=== PATIENT | female | born 1970 | race Caucasian/White ===

== ENCOUNTER 2019-09-23 10:16 | Day surgery (SDC) | payer BC, SELFPAY ==
--- NOTE | 2019-09-22 17:56 | PCM.HP.OB ---
- Problem List (1) Heavy menstrual bleeding Status: Acute History Date of Admission: 09/23/19 History of this : This is a 49 year-old with menorrhagia with regular cycle. Medical History: Medical History (Last Updated 09/22/19 @ 17:58 by Renetta Balderas DO) History of anemia Z86.2 History of fracture Z87.81 History of kidney infection Z87.440 History of pneumonia Z87.01 IBS (irritable bowel syndrome) K58.9 Sleep apnea G47.30 Vertigo R42 Surgical History: Surgical History (Last Updated 09/22/19 @ 17:58 by Renetta Balderas DO) History of breast biopsy Z98.890 History of colonoscopy Z98.890 History of dilation and curettage Z98.890 History of tubal ligation Z98.51 Allergies Sulfa (Sulfonamide Antibiotics) Allergy (Verified 09/20/19 10:58) Anaphylaxis Home Medications: Home Medications Acetaminophen [Tylenol Extra Strength] 500 - 1,000 mg PO Q6H PRN PRN 09/20/19 Ferrous Sulfate 325 mg PO DAILY@0800 09/20/19 Ibuprofen [Motrin] 600 mg PO Q6H PRN PRN 09/20/19 Melatonin 5 mg PO QHS 09/20/19 Zolpidem Tartrate [Ambien Cr] 6.25 mg PO QHS PRN 09/20/19 Smoking Status: Former smoker History Past Pregnancies: Past Pregnancies Delivery Date Name GA/ Weeks Outcome Route Wt Sex Labor Length Anesthesia Delivery Location Provider FOB Review of Systems Constitutional: Denies: Fever Eyes: Denies: Blurred vision HEENT: Denies: Head Aches Cardiovascular: Denies: Chest Pain Respiratory: Denies: Cough, Shortness of breath at rest Gastrointestinal: Denies: Abdominal Pain Genitourinary: Denies: Dysuria Gynecological: Reports: Vaginal bleeding Psychiatric: Denies: Anxiety, Depression Hematologic/ Lymphatic: Denies: Easy Bruising, Easy Bleeding Physical Exam General: Alert, No apparent distress HEENT: Atraumatic Cardiovascular: Regular rate Lungs: Clear to auscultation Abdomen: Soft, Non Tender, Non-Distended Extremities:: No edema Neurological: Neuro grossly intact Assessment/Plan All Active Problems Heavy menstrual bleeding (Acute) This is a 49 year-old with HMB. - She desires an ablation after discussion of r/b/a. To proceed with hysteroscopy ablation
[2019-09-23] VITALS (7 sets, daily range): BP systolic 104–128; BP diastolic 65–80; PULSE 16–82; RESP 15–16; TEMP 36.5–36.7; O2SAT 99–100; BMI 21.4
[2019-09-23 10:47] LABS: Internal QC Validated? YES +Cl - CLEAR BKGD; Pregnancy, Urine Negative Negative
[2019-09-23 10:52] LABS: Hematocrit 41.1 % (37-47); Hemoglobin 13.3 g/dL (12.0-15.0); Mean Corp Hgb Conc 32.4 g/dL (32-36); Mean Corpuscular Hgb 31.7 pg (27.0-32.0); Mean Corpuscular Volume 98.1 fL (81-99); Mean Platelet Vol. 9.5 fl (6.2-12.0); Platelet Count 295 K/mm3 (150-450); RBC Distribution Width CV 14.6 % (11.6-14.6); RBC Distribution Width SD 52.7 fl (35.1-43.9); Red Blood Count 4.19 M/mm3 (4.2-5.4); White Blood Count 7.3 K/mm3 (4.4-11.0)
[2019-09-23] MEDS: Lactated Ringers 1,000 ML 100 ML IV (11:00)
--- NOTE | 2019-09-23 13:14 | DCINST_ITS ---
You will use the following diet at home:: No restrictions Your food should be the consistency of: Regular Discharge Activity: May not drive while taking narcotic pain medications., May Shower May resume sexual activity in: 1-2 weeks Weight Bearing Status: Full weight bearing Lifting Restrictions: None Call your doctor if you observe: Fever of 101 or Higher, Inability to urinate, Inability to have a bowel movement, Using more than one pad per hour, Shortness of breath, Dizziness, Chest pain, Increased palpitations (irregular heartbeat), Calf discomfort, Uncontrolled pain Allergies/Adverse Reactions: Allergies Sulfa (Sulfonamide Antibiotics) Allergy (Verified 09/23/19 10:47) Anaphylaxis Medications to take at Discharge Acetaminophen [Tylenol Extra Strength] 500 - 1,000 mg PO Q6H PRN PRN 09/20/19 Ferrous Sulfate 325 mg PO DAILY@0800 09/20/19 Ibuprofen [Motrin] 600 mg PO Q6H PRN PRN 09/20/19 Melatonin 5 mg PO QHS 09/20/19 Zolpidem Tartrate [Ambien Cr] 6.25 mg PO QHS PRN 09/20/19 Orders to be completed after discharge: Type & Screen Time Frame: 09/23/19, Facility: [facility], Location: Laboratory CBC-Complete Blood Cnt No Diff Time Frame: 09/23/19, Facility: [facility], Location: Laboratory Primary Care Physician: Mari Jones MD [Primary Care Provider] - Test Results: Test results from this visit will be discussed in further detail at your follow- up appointment, if applicable. Please Follow Up With: Renetta Balderas DO When: 1 week Proposed Discharge Date: 09/23/19
--- NOTE | 2019-09-23 13:15 | OP.PCM_ITS ---
Problem List (1) Heavy menstrual bleeding Status: Acute Report of Operation Date of Procedure: 09/23/19 Pre-Operative Diagnosis: HMB, benign endometrial biopsy Post-Operative Diagnosis: HMB Surgery/Procedure Performed:: Hysteroscopy, ablation Description of Surgical Findings:: Normal uterine cavity noted. Bilateral tubal ostia were visualized. No fibroids or polyps noted. Minimal descent of the cervix and uterus. Type of Anesthesia:: MAC Specimen's removed: None Drains: None Estimated Blood Loss (mL): < 10 cc Fluids Replaced: 800 cc Description of Procedure: The patient was prepped and draped in dorsal lithotomy position using yellowfin stirrups. Anesthesia was found to be adequate. A weighted speculum was placed in the vagina and the cervix was exposed. The anterior lip of the cervix was grasped with a single-tooth tenaculum. The cervix was progressively dilated to accommodate the hysteroscope. The uterus sounded to 8 cm. The cervical length was noted to be 4 cm. The hysteroscope was advanced into the uterus and the uterus was distended. There were no polyps or fibroids noted within the uterine cavity. The uterine cavity was normal-appearing. Bilateral tubal ostia were visualized. The hysteroscope was then removed. The Autumn ablation device was then set and introduced into the uterine cavity. The Autumn ablation was performed in usual fashion without complications. The Autumn device was remov ed from the uterus. All instruments were removed from the vagina. Bleeding was hemostatic. The patient was taken to the recovery room in stable condition. - Complications None - Admit VTE Documentation VTE Present on Admission: No
[2019-09-23] MEDS: HYDROcodone Bitartrate/Apap 5/325 Tablet PO (13:56)
== END 2019-09-23 17:32 | disposition home or self-care (01) ==
LOC: SDC 10:23 → AC 10:27
PROVIDERS: Family Provider Internal Medicine; PCP Internal Medicine; Referring Provider Obstetrics & Gynecology; Visit Provider Obstetrics & Gynecology
PROC: 0U5B8ZZ Destruction of Endometrium, Via Natural or Artificial Opening Endoscopic (ICD-10-PCS; CPT 58558; principal; 2019-09-23 11:45)
DX: N92.0 Excessive and frequent menstruation with regular cycle (principal); K58.9 Irritable bowel syndrome, unspecified; G47.30 Sleep apnea, unspecified; R42 Dizziness and giddiness; F41.9 Anxiety disorder, unspecified; Z79.1 Long term (current) use of non-steroidal anti-inflammatories (NSAID); Z79.899 Other long term (current) drug therapy; Z88.2 Allergy status to sulfonamides; Z86.2 Personal history of diseases of the blood and blood-forming organs and certain disorders involving the immune mechanism; Z87.440 Personal history of urinary (tract) infections; Z87.01 Personal history of pneumonia (recurrent); Z87.891 Personal history of nicotine dependence
CPT/HCPCS: 58563; 36415; 81025; 85027; 86850; 86900; 86901; J7120; J2405

== ENCOUNTER 2019-09-28 06:53 | Emergency (ER) | payer BC, SELFPAY ==
[2019-09-23 10:48] VITALS: BMI 21.4
[2019-09-28 06:54] VITALS: BP 153/90; PULSE 84; RESP 16; TEMP 36.1; O2SAT 96; BMI 22.1
--- NOTE | 2019-09-28 07:15 | ED.VIS.GEN ---
History of Present Illness Chief Complaint: General Illness Informant: Patient Narrative: Patient presents with nausea, upper airway congestion, sore throat rhinorrhea and right-sided headache for about 4 days. She has no fever, she has a cough. She had a couple episodes of vomiting and noticed some blood streaks this morning after vomiting. She is concerned because she had an ablation about 5 days ago and wants to make sure it is not a sequelae from her uterine ablation. She has abdominal pain on the right side although it is improved from surgery and she has stopped taking her Percocets. She has no shortness of breath the cough is nonproductive. Past Medical History - Allergies and Home Meds Allergies/Adverse Reactions: Allergies Sulfa (Sulfonamide Antibiotics) Allergy (Verified 09/23/19 10:47) Anaphylaxis Primary Care Physician: Mari Jones MD [Primary Care Provider] - Past Medical History: - - Heavy menstrual bleeding Surgical History: - - Uterine ablation as in HPI Smoking Status: Never smoker Review of Systems General: Denies: Fever Eyes: Denies: Visual changes - bilaterally ENT: Reports: Right ear pain, Rhinorrhea, Sore throat Cardiovascular: Denies: Chest pain, Palpitations Respiratory: Reports: Cough. Denies: Dyspnea, Sputum Gastrointestinal: Reports: Abdominal pain, Nausea, Vomiting. Denies: Diarrhea Genitourinary: Denies: Dysuria Musculoskeletal: Denies: Myalgias, Neck pain, Back pain Skin: Denies: Rash Neurological: Denies: Weakness Hematologic: Denies: Easy bruising Physical Exam Vital Signs/Narrative: Vital Signs Temp Pulse Resp BP Pulse Ox 09/28/19 06:54 97.0 F L 84 16 153/90 H 96 General: Well nourished, Well developed Head: Normocephalic, Atraumatic Eyes: Perrl ENT: Moist mucous membranes, - - There is upper airway congestion, rhinorrhea, there is some postnasal drip present. TMs are clear, she has right ear pain, she has slight erythema but no bulging. Cardiovascular: Regular rate, Regular rhythm Respiratory: No distress, CTA bilaterally Abdomen: Soft, - - She has slight pelvic and right pelvic tenderness, from her surgery. She has no guarding or rebound. Back: Nontender, Normal Inspection Extremities: Nontender, No edema Skin: Normal color Neurological: Alert, Normal Strength Diagnostic/Tx/Re-eval - Medical Decision Making Patient appears well, she likely has an upper respiratory infection which is likely viral. She does not meet criteria for antibiotic treatment. I will give her decongestants and antiemetics. Discharge stable condition ED Disposition - Plan for ED Patient: Disposition: Home or Assisted Living Diagnosis: Upper respiratory infection Instructions: URI, Viral, No Abx (Adult) Prescriptions: Guaifenesin/Dextromethorphan [Tussin Dm Liquid] 5 ml PO TID PRN #118 liquid PRN Reason: Cough Transmission Status: Pending to [facility] Ondansetron [Zofran Odt] 4 mg PO Q8H PRN PRN #12 tab PRN Reason: Nausea Transmission Status: Pending to [facility] Referrals: Mari Jones MD [Primary Care Provider] - 3-5 Days
== END 2019-09-28 07:43 | disposition home or self-care (01) ==
PROVIDERS: Emergency Provider Emergency Medicine; Family Provider Internal Medicine; PCP Internal Medicine
DX: J06.9 Acute upper respiratory infection, unspecified (principal); H92.01 Otalgia, right ear; R11.2 Nausea with vomiting, unspecified; R10.9 Unspecified abdominal pain; Z88.2 Allergy status to sulfonamides; Z79.899 Other long term (current) drug therapy
CPT/HCPCS: 99282

== ENCOUNTER 2021-09-28 18:03 | Observation (INO) | payer OTHER, SELFPAY ==
[2021-09-28 18:03] VITALS: BP 114/92; PULSE 130; RESP 18; TEMP 35.9; O2SAT 100; BMI 22.3
--- NOTE | 2021-09-28 19:27 | US_ITS ---
INDICATION: vaginal bleeding EXAMINATION: Ultrasound US Transvaginal Non-OB TECHNIQUE: Transvaginal (for optimal evaluation of the adnexa) pelvic ultrasound was performed. Grayscale, spectral waveform, and color flow Doppler evaluation of the adnexa. COMPARISON: None. FINDINGS: Reported LMP of 09/16/2021. Uterus measures 7.7 x 4.8 x 3.5 cm and is retroflexed in position. There is a 1.3 x 1.4 x 0.7 cm hypoechoic area within the posterior fundal region likely representing a myometrial fibroid. Ill-defined heterogeneous area of decreased echogenicity in the mid, left uterus region not well differentiated from the endometrium measures roughly 16 x 15 x 14 mm. Endometrial stripe measures up to 14 mm in this area. Submucosal fibroid or less likely endometrial mass lesion is considered. No color flow images of this area. Cervix is normal in appearance. Right ovary measures 2.9 x 3.0 x 2.4 cm. Left ovary measures 2.5 x 1.7 x 1.47 m. There is a roughly 2 cm anechoic cystic lesion right ovary representing dominant follicle or cyst. No suspicious solid component. No visible follicle seen in the left ovary. Mildly decreased color flow seen in the bilateral ovaries. No evidence of torsion. No adnexal mass lesion. No suspicious fluid in the cul-de-sac. US/Transvaginal Non- IMPRESSION: Area of potential focal endometrial stripe thickening and/or hypoechoic lesion extending into the endometrial stripe as could be seen with submucosal fibroid. No appreciable fluid in the endometrial cavity. Follow-up pelvic ultrasound following a menstrual cycle is recommended. Electronically Signed: Bebeto Rueda DO at 21:17 EST Tel , Service support ,
[2021-09-28 19:46] LABS: Absolute Lymphocyte Count 1.64 X10^3/uL (0.83-4.51); Basophil# 0.02 X10^3/uL; Basophil% 0.4 % (0-1); Eosinophil# 0.05 X10^3/uL; Hemoglobin 8.9 g/dL (12.0-15.0); Lymphocyte # 1.64 X10^3/ul (0.83-4.51); Lymphocyte % 32.7 % (19-41); Mean Corpuscular Hgb 29.3 pg (27.0-32.0); Mean Corpuscular Volume 88.8 fL (81-99); Mean Platelet Vol. 9.3 fl (6.2-12.0); Monocyte# 0.29 X10^3/uL; Monocyte% 5.8 % (0-10); NRBC Flagged by Analyzer 0 % (0-5); Neutrophil # 3.01 X10^3/uL (2.7-7.7); Neutrophil % 59.9 % (47-70); Platelet Count 277 K/mm3 (150-450); RBC Distribution Width CV 15.4 % (11.6-14.6); RBC Distribution Width SD 50.6 fl (35.1-43.9); Red Blood Count 3.04 M/mm3 (4.2-5.4)
[2021-09-28 19:58] VITALS: BP 87/56; PULSE 80; RESP 18; O2SAT 100
[2021-09-28 20:01] LABS: Anion Gap 6 (5-15); BUN 11 mg/dL (7-18); BUN/Creat Ratio 16.2 RATIO (10-20); Calcium,Total 8.5 mg/dL (8.5-10.1); Chloride 108 mmol/L (98-107); Creatinine, Serum 0.68 mg/dL (0.55-1.02); EST Glomerular Filtration Rate 96 mL/min (>60); Est Glom Filt Rate - Afr Amer 117 mL/min (>60); Estimated Creatinine Clearance 83.57 ml/min; Glucose 112 mg/dL (74-106); Potassium 3.7 mmol/L (3.5-5.1); Sodium Level 139 mmol/L (136-145)
[2021-09-28] MEDS: 0.9% Normal Saline 1,000 ML 999 ML IV ×2 (20:09→22:41)
[2021-09-28 20:11] VITALS: BP 98/73; PULSE 76; RESP 18; O2SAT 100
[2021-09-28 21:15] VITALS: BP 118/66; PULSE 86; RESP 12; O2SAT 97
[2021-09-28 21:39] LABS: Internal QC Validated? YES +Cl - CLEAR BKGD; Pregnancy, Serum, hCG Quali. NEGATIVE Negative
[2021-09-28] MEDS: Megestrol Acetate 400 MG/10 ML UDC 800 MG PO (23:17)
[2021-09-28 23:30] VITALS: BP 122/68; PULSE 84; RESP 16; O2SAT 100
--- NOTE | 2021-09-28 23:31 | ED.VIS.FEGU ---
HPI HPI - Female History of Present Illness Chief Complaint: Vag Bleeding Narrative Narrative: Patient is a 51-year-old female who states that she has been perimenopausal. She states that she has not had a menstrual cycle for 6 weeks and then began with vaginal bleeding on September 16. She states that she has been bleeding for the past 2 weeks but over the past few days has had increased bleeding and passage of clot. She states she is starting to feel lightheaded or dizzy as well and therefore comes in for evaluation. The patient denies any bleeding disorder or blood thinner use. [facility] Medical History History of anemia History of fracture History of kidney infection History of pneumonia IBS (irritable bowel syndrome) Sleep apnea Vertigo Home Medications ferrous sulfate 650 mg PO QODAY 09/20/19 [History Last Taken Unknown] melatonin 5 mg PO QHS 09/20/19 [History Last Taken Unknown] Allergy/AdvReac Type Severity Reaction Status Date / Time Sulfa (Sulfonamide Allergy Anaphylaxis Verified 09/28/21 18:06 Antibiotics) Surgical History History of breast biopsy History of colonoscopy History of dilation and curettage History of tubal ligation Social History Smoking Status: Former smoker ROS ROS ED Constitutional Constitutional ED: Denies chills or fever(s) ENT ENT ED: Denies sore throat Cardiovascular Cardiovascular: Denies chest pain Respiratory/Chest Respiratory/Chest: Denies cough or dyspnea Gastrointestinal Gastrointestinal: Denies abdominal pain, diarrhea, nausea or vomiting Genitourinary Genitourinary ED: Reports other Details: Positive vaginal bleeding ; Denies dysuria Musculoskeletal Musculoskeletal: Denies myalgias Integumentary Denies rash Neurologic Neurologic: Denies headache(s) Hematologic/Lymphatic Hematologic/Lymphatic: Denies easy bleeding or easy bruising EXAM Physical Exam Const Vital Signs: 09/28/21 18:03 09/28/21 19:58 09/28/21 20:11 Temperature 96.7 F L Temperature Source Temporal Pulse Rate 130 H 80 76 Respiratory Rate 18 18 18 Blood Pressure 114/92 H 87/56 L 98/73 Blood Pressure Mean 99 66 81 Pulse Ox 100 100 100 Oxygen Delivery Method Room Air Room Air Room Air 09/28/21 21:15 09/28/21 23:30 Temperature Temperature Source Pulse Rate 86 84 Respiratory Rate 12 16 Blood Pressure 118/66 122/68 H Blood Pressure Mean 83 86 Pulse Ox 97 100 Oxygen Delivery Method Room Air Positive well nourished and well developed General Appearance ED: well developed HEENT Reports moist mucous membranes Eyes PERRL and EOMs intact bilaterally General Eye ED: Yes pale conjunctiva Neck supple Resp normal respiratory effort and clear to auscultation bilaterally Cardio regular rhythm Rate: tachycardic GI normal to inspection, nondistended, normoactive bowel sounds, soft to palpation, non-tender, non-distended and no masses Auscultation: normoactive bowel sounds Palpation: soft Narrative: External genitalia is normal. On speculum exam the vaginal vault is full of dark red blood as well as a large amount of clot. After evacuation there is brisk bleeding which begins to fill the vaginal vault once again Extremity normal to inspection Neuro oriented x3, CN's II-XII intact bilaterally and no sensory deficits noted Sensorium / Orientation: alert Psych mental status grossly normal Skin no rashes or lesions noted MDM MDM MDM Narrative Medical decision making narrative: Patient presented to the ER tachycardic but otherwise normal tensive. She denies any bleeding disorder or blood thinner use but did report prolonged vaginal bleeding that worsened over the last few days. With this history and report of being lightheaded there is concerned that she may need a blood transfusion so basic blood work was ordered. The patient's hemoglobin was above transfusion value at 8.9 however she was orthostatic positive and therefore given fluids. Patient continued to have bleeding so I discussed the case with [employer] and they recommend progesterone to try to help reduce bleeding. This was given the patient still had persistent vaginal bleeding and symptoms of lightheadedness with sitting or standing. Therefore repeat hemoglobin was obtained and is now down at 7. Therefore patient will be given 2 units of blood and admitted to the hospital for further evaluation. Lab Data Attestation: I reviewed the patient's lab results. Labs: Laboratory Results - last 24 hr 09/28/21 09/28/21 09/28/21 19:35 19:35 20:07 WBC 5.0 RBC 3.04 L Hgb 8.9 L Hct 27.0 L MCV 88.8 MCH 29.3 MCHC 33.0 RDW Std Deviation 50.6 H RDW Coeff of Gunner 15.4 H Plt Count 277 MPV 9.3 Immature Gran % (Auto) 0.200 Neut % (Auto) 59.9 Lymph % (Auto) 32.7 [place] % (Auto) 5.8 Eos % (Auto) 1.0 Baso % (Auto) 0.4 Absolute Neuts (auto) 3.0 Absolute Lymphs (auto) 1.64 Nucleated RBC % 0 Sodium 139 Potassium 3.7 Chloride 108 H Carbon Dioxide 25.0 Anion Gap 6 BUN 11 Creatinine 0.68 Estim Creat Clear Calc 83.57 Est GFR (MDRD) Af Amer 117 Est GFR (MDRD) Non-Af 96 BUN/Creatinine Ratio 16.2 Glucose 112 H Calcium 8.5 Serum , Qual Blood Type O POSITIVE Antibody Screen NEGATIVE 09/28/21 09/28/21 21:13 23:50 WBC RBC Hgb 7.0 L Hct 21.7 L MCV MCH MCHC RDW Std Deviation RDW Coeff of Gunner Plt Count MPV Immature Gran % (Auto) Neut % (Auto) Lymph % (Auto) [place] % (Auto) Eos % (Auto) Baso % (Auto) Absolute Neuts (auto) Absolute Lymphs (auto) Nucleated RBC % Sodium Potassium Chloride Carbon Dioxide Anion Gap BUN Creatinine Estim Creat Clear Calc Est GFR (MDRD) Af Amer Est GFR (MDRD) Non-Af BUN/Creatinine Ratio Glucose Calcium Serum , Qual NEGATIVE Blood Type Antibody Screen Radiography Diagnostic Testing: Clinical Impression(s) from Imaging Studies Transvaginal US 09/28/21 19:27 IMPRESSION: Area of potential focal endometrial stripe thickening and/or hypoechoic lesion extending into the endometrial stripe as could be seen with submucosal fibroid. No appreciable fluid in the endometrial cavity. Follow-up pelvic ultrasound following a menstrual cycle is recommended. Electronically Signed: Bebeto Rueda DO at 21:17 EST Tel , Service support , Discharge Plan Triage Chief Complaint: Vag Bleeding ED Provider: Neel Sher Dx/Rx/DC Orders Clinical Impression: Acute blood loss anemia, DUB (dysfunctional uterine bleeding) Prescriptions: No Action ferrous sulfate 325 MG tablet 650 mg PO QODAY RF: 0 melatonin 5 MG capsule 5 mg PO QHS RF: 0 Primary Care Provider: Mari Jones Referrals: Mari Jones MD [Primary Care Provider] - Disposition Disposition: Acute Care Hospital [facility]
[2021-09-28] MEDS: Ondansetron 4 MG/2 ML Vial IV (23:53)
[2021-09-28] MEDS: 0.9% Normal Saline 1,000 ML 200 ML IV (23:56)
[2021-09-29] VITALS (19 sets, daily range): BP systolic 81–102; BP diastolic 44–71; PULSE 65–86; RESP 16–18; TEMP 36.4–37.4; O2SAT 96–100; BMI 21.6
[2021-09-29 00:02] LABS: Hematocrit 21.7 % (37-47)
--- NOTE | 2021-09-29 02:07 | PCS.PANDOC ---
PANDEMIC DOCUMENTATION INITIATED: Date: 06/18/2021 Time: 1900 Emergency documentation initiated 09/29/21 @ 0200
[2021-09-29] MEDS: Estrogens,Conj. 25 MG Vial IV ×3 (06:09→14:44)
[2021-09-29] MEDS: 0.9% Normal Saline 1,000 ML 200 ML IV ×3 (06:11→14:48)
[2021-09-29 10:04] LABS: Hematocrit 23.7 % (37-47); Hemoglobin 7.9 g/dL (12.0-15.0); Mean Corp Hgb Conc 33.3 g/dL (32-36); Mean Corpuscular Hgb 29.5 pg (27.0-32.0); Mean Corpuscular Volume 88.4 fL (81-99); Mean Platelet Vol. 9.8 fl (6.2-12.0); Platelet Count 198 K/mm3 (150-450); RBC Distribution Width CV 15.8 % (11.6-14.6); RBC Distribution Width SD 50.9 fl (35.1-43.9); Red Blood Count 2.68 M/mm3 (4.2-5.4); White Blood Count 4.9 K/mm3 (4.4-11.0)
[2021-09-29 10:17] LABS: International Normalized Ratio 1.2; Prothrombin Time (Protime)PT. 14.5 SECONDS (11.7-14.9)
[2021-09-29] MEDS: 0.9% Saline Lock 10 ML Syringe IV ×2 (10:18→14:39)
[2021-09-29 10:22] LABS: AST(SGOT) 13 U/L (15-37); Alanine Aminotransfer ALT/SGPT 13 U/L (13-56); Albumin, Serum 2.3 g/dL (3.2-5.0); Alkaline Phosphatase 40 U/L (45-117); Anion Gap 4 (5-15); BUN 7 mg/dL (7-18); BUN/Creat Ratio 11.9 RATIO (10-20); Calcium,Total 7.5 mg/dL (8.5-10.1); Chloride 117 mmol/L (98-107); Creatinine, Serum 0.59 mg/dL (0.55-1.02); EST Glomerular Filtration Rate 115 mL/min (>60); Est Glom Filt Rate - Afr Amer 139 mL/min (>60); Estimated Creatinine Clearance 96.32 ml/min; Globulin 2.3 g/dL (2.2-4.2); Glucose 108 mg/dL (74-106); Potassium 4.1 mmol/L (3.5-5.1); Protein, Total 4.6 g/dL (6.4-8.2); Sodium Level 144 mmol/L (136-145)
[2021-09-29 11:15] LABS: Thyroid Stim Hormone (TSH) 1.19 uIU/mL (0.358-3.74)
--- NOTE | 2021-09-29 11:22 | PCM.HP.STD ---
HPI - General General Date of Admission: 09/29/21 HPI Narrative ROC SEN, is a 51 F who presents with vaginal bleeding for 2 weeks. The bleeding became heavy with clots Friday night. Prior to this menses were monthly and heavy (but less so than prior to 2019 ablation). She feels tired and weak. Her bleeding has slowed down since last night. [facility] Medical History (Updated 09/29/21 @ 11:[address] Mike Vazquez MD) Abnormal uterine bleeding (AUB) History of anemia History of fracture History of kidney infection History of pneumonia IBS (irritable bowel syndrome) Sleep apnea Vertigo Home Medications ferrous sulfate 650 mg PO QODAY 09/20/19 [History Last Taken Unknown] melatonin 10 mg PO QHS 09/20/19 [History Last Taken Unknown] Allergy/AdvReac Type Severity Reaction Status Date / Time Sulfa (Sulfonamide Allergy Anaphylaxis Verified 09/28/21 18:06 Antibiotics) Surgical History (Updated 09/29/21 @ 11:[address] Mike Vazquez MD) History of breast biopsy History of colonoscopy History of dilation and curettage History of tubal ligation S/P endometrial ablation Social History Smoking Status: Former smoker ROS Constitutional Constitutional: Reports weakness; Denies anorexia, change in weight, chills, fatigue, fever(s), malaise, night sweats, weight gain or weight loss Cardiovascular Cardiovascular: Denies chest pain, claudication, edema, orthopnea, palpitations, paroxysmal nocturnal dyspnea or syncope Vital Signs Vital Signs Vital Signs: 09/28/21 18:03 09/28/21 19:58 09/28/21 20:11 Temperature 96.7 F L Temperature Source Temporal Pulse Rate 130 H 80 76 Respiratory Rate 18 18 18 Blood Pressure 114/92 H 87/56 L 98/73 Blood Pressure Mean 99 66 81 Blood Pressure Source Blood Pressure Position Blood Pressure Location Pulse Ox 100 100 100 Oxygen Delivery Method Room Air Room Air Room Air 09/28/21 21:15 09/28/21 23:30 09/29/21 00:48 Temperature 98.4 F Temperature Source Oral Pulse Rate 86 84 86 Respiratory Rate 12 16 16 Blood Pressure 118/66 122/68 H 96/60 Blood Pressure Mean 83 86 72 Blood Pressure Source Blood Pressure Position Blood Pressure Location Pulse Ox 97 100 96 Oxygen Delivery Method Room Air Room Air 09/29/21 02:14 09/29/21 03:14 09/29/21 03:53 Temperature 98.4 F 98.2 F 98.3 F Temperature Source Oral Oral Oral Pulse Rate 76 73 72 Respiratory Rate 16 18 18 Blood Pressure 91/49 L 92/53 L 89/52 L Blood Pressure Mean 63 66 64 Blood Pressure Source Monitor Monitor Monitor Blood Pressure Position Semi-Fowlers Semi-Fowlers Supine Blood Pressure Location Right Arm Right Arm Right Arm Pulse Ox 97 96 100 Oxygen Delivery Method Room Air Room Air Room Air 09/29/21 04:14 09/29/21 04:27 09/29/21 05:01 Temperature 99.1 F 99.3 F H 98.3 F Temperature Source Oral Oral Oral Pulse Rate 70 65 76 Respiratory Rate 16 16 16 Blood Pressure 85/49 L 81/50 L 85/46 L Blood Pressure Mean 61 60 59 Blood Pressure Source Monitor Monitor Monitor Blood Pressure Position Semi-Fowlers Semi-Fowlers Semi-Fowlers Blood Pressure Location Right Arm Right Arm Right Arm Pulse Ox 99 98 99 Oxygen Delivery Method Room Air Room Air Room Air 09/29/21 06:00 09/29/21 07:00 09/29/21 10:08 Temperature 98.4 F 98.0 F 98.2 F Temperature Source Oral Oral Oral Pulse Rate 76 80 79 Respiratory Rate 16 16 18 Blood Pressure 102/47 L 95/71 97/56 L Blood Pressure Mean 65 79 69 Blood Pressure Source Monitor Monitor Monitor Blood Pressure Position Semi-Fowlers Semi-Fowlers Blood Pressure Location Right Arm Right Arm Pulse Ox 100 98 100 Oxygen Delivery Method Room Air Room Air Room Air Weight Weight: 126 lb 7 oz Body Mass Index (BMI) 21.6 Physical Exam Const alert and oriented x3 GI GI Narrative: - normal external genitalia, 50cc clot removed from vaginal vault, no active bleeding from cervical os, normal appearing cervix & vagina Extremity no clubbing, cyanosis or edema and no calf tenderness Neuro CN's II-XII intact bilaterally Psych affect normal Results Lab / Micro Data Result Diagrams: 09/30/21 05:45 09/29/21 09:30 Labs: Laboratory Results - last 24 hr 09/28/21 19:35: WBC 5.0, RBC 3.04 L, Hgb 8.9 L, Hct 27.0 L, MCV 88.8, MCH 29.3, MCHC 33.0, RDW Std Deviation 50.6 H, RDW Coeff of Gunner 15.4 H, Plt Count 277, MPV 9.3, Immature Gran % (Auto) 0.200, Neut % (Auto) 59.9, Lymph % (Auto) 32.7, [place] % (Auto) 5.8, Eos % (Auto) 1.0, Baso % (Auto) 0.4, Absolute Neuts (auto) 3.0, Absolute Lymphs (auto) 1.64, Nucleated RBC % 0 09/28/21 19:35: Sodium 139, Potassium 3.7, Chloride 108 H, Carbon Dioxide 25.0, Anion Gap 6, BUN 11, Creatinine 0.68, Estim Creat Clear Calc 83.57, Est GFR (MDRD) Af Amer 117, Est GFR (MDRD) Non-Af 96, BUN/Creatinine Ratio 16.2, Glucose 112 H, Calcium 8.5 09/28/21 20:07: Blood Type O POSITIVE, Antibody Screen NEGATIVE 09/28/21 20:07: Crossmatch See Detail 09/28/21 21:13: Serum , Qual NEGATIVE 09/28/21 23:50: Hgb 7.0 L, Hct 21.7 L 09/29/21 09:30: WBC 4.9, RBC 2.68 L, Hgb 7.9 L, Hct 23.7 L, MCV 88.4, MCH 29.5, MCHC 33.3, RDW Std Deviation 50.9 H, RDW Coeff of Gunner 15.8 H, Plt Count 198, MPV 9.8 09/29/21 09:30: Sodium 144, Potassium 4.1, Chloride 117 H, Carbon Dioxide 23.0, Anion Gap 4 L, BUN 7, Creatinine 0.59, Estim Creat Clear Calc 96.32, Est GFR (MDRD) Af Amer 139, Est GFR (MDRD) Non-Af 115, BUN/Creatinine Ratio 11.9, Glucose 108 H, Calcium 7.5 L, Total Bilirubin 0.50, AST 13 L, ALT 13, Alkaline Phosphatase 40 L, Total Protein 4.6 L, Albumin 2.3 L, Globulin 2.3, Albumin/Globulin Ratio 1.0 09/29/21 09:30: PT 14.5, INR 1.2 11/27/21 09:30: TSH 1.19 Micro: Microbiology 09/29/21 00:37 Nasal Secretion SARS-CoV-2 Antigen (Rapid) - Final Radiology Impression Transvaginal US 09/28/21 19:27 IMPRESSION: Area of potential focal endometrial stripe thickening and/or hypoechoic lesion extending into the endometrial stripe as could be seen with submucosal fibroid. No appreciable fluid in the endometrial cavity. Follow-up pelvic ultrasound following a menstrual cycle is recommended. Electronically Signed: Bebeto Rueda, at 21:17 EST Tel , Service support , Assessment & Plan Assessment/Plan (1) Abnormal uterine bleeding (AUB): PLAN: HD#1 (1) Anemia - from acute blood loss. She is s/p 2 units PRBC's. Hb on repeat = 7.9. Normal coags. (2) Reviewed labs & imaging with patient. Will continue IV estrogen & transition to oral estrogen. Plan of care discussed with patient and she agrees to continue medical management as her VB has slowed. Discussed that surgical management may be necessary in the future and possible D&C and/or hysterectomy were discussed. (3) GI - resume regular diet (4) Routine care
[2021-09-29] MEDS: Ondansetron 4 MG/2 ML Vial IV (14:39)
[2021-09-29 15:30] LABS: Hematocrit 20.2 % (37-47); Hemoglobin 6.8 g/dL (12.0-15.0)
[2021-09-29] MEDS: Acetaminophen 500 MG Tablet 1000 MG PO (17:07)
[2021-09-29] MEDS: DiphenhydrAMINE 25 MG Capsule PO (17:08)
[2021-09-29] MEDS: Estrogens,Conj. 1.25 MG Tablet 2.5 MG PO ×2 (18:43→21:02)
[2021-09-30] MEDS: 0.9% Normal Saline 1,000 ML 200 ML IV ×3 (00:36→11:11)
[2021-09-30 02:32] VITALS: BP 90/47; PULSE 71; RESP 16; TEMP 36.8; O2SAT 91
[2021-09-30] MEDS: Estrogens,Conj. 1.25 MG Tablet 2.5 MG PO (04:11)
[2021-09-30 04:12] VITALS: BP 92/56; PULSE 81; RESP 16; TEMP 36.7; O2SAT 97
[2021-09-30 06:33] LABS: Absolute Lymphocyte Count 2.02 X10^3/uL (0.83-4.51); Absolute Neutrophil Count 4.9 X10^3/uL (2.0-7.7); Basophil# 0.04 X10^3/uL; Basophil% 0.5 % (0-1); Eosinophil# 0.18 X10^3/uL; Eosinophils% 2.4 % (0-5); Hematocrit 25.4 % (37-47); Hemoglobin 8.6 g/dL (12.0-15.0); Lymphocyte # 2.02 X10^3/ul (0.83-4.51); Lymphocyte % 26.8 % (19-41); Mean Corp Hgb Conc 33.9 g/dL (32-36); Mean Corpuscular Hgb 29.6 pg (27.0-32.0); Mean Corpuscular Volume 87.3 fL (81-99); Mean Platelet Vol. 9.8 fl (6.2-12.0); Monocyte% 5.3 % (0-10); NRBC Flagged by Analyzer 0 % (0-5); Neutrophil # 4.89 X10^3/uL (2.7-7.7); Neutrophil % 64.7 % (47-70); Platelet Count 159 K/mm3 (150-450); RBC Distribution Width CV 15.8 % (11.6-14.6); RBC Distribution Width SD 50.2 fl (35.1-43.9); Red Blood Count 2.91 M/mm3 (4.2-5.4); White Blood Count 7.6 K/mm3 (4.4-11.0)
[2021-09-30 09:13] VITALS: BP 116/62; PULSE 74; RESP 18; TEMP 37.1; O2SAT 100
[2021-09-30 09:24] VITALS: BP 116/73; PULSE 80; RESP 18; O2SAT 98
[2021-09-30] MEDS: Estrogens,Conj. 1.25 MG Tablet PO (10:07)
--- NOTE | 2021-09-30 11:11 | NURSING ---
pt back from bathroom. reports feeling weak stating had to sit most of the time brushing teeth but again denies any clots passed and did not need to change peripad at this time.
[2021-09-30 12:45] VITALS: BP 108/62; PULSE 73; RESP 16; TEMP 36.4; O2SAT 99
--- NOTE | 2021-09-30 13:31 | PCM.PROGNOTE ---
Subjective Subjective Patient feels much better. Her vaginal bleeding is minimal & no clots. She still feels tired but no longer feels dizzy with standing. Objective Data Objective Data Vital Signs: Vital Signs Temp Pulse Resp BP Pulse Ox 97.6 F L 73 16 108/62 99 09/30/21 12:45 09/30/21 12:45 09/30/21 12:45 09/30/21 12:45 09/30/21 12:45 Oxygen Delivery Method Room Air Weight: 126 lb 7 oz Body Mass Index (BMI) 21.6 Intake & Output: Intake and Output for Last 24 Hours 09/28/21 09/29/21 09/30/21 23:59 23:59 23:59 Intake Total 1999 4236.66 / 4436.66 3513.33 / 3513.33 Output Total 1800 / 1800 Balance 1999 4236.66 / 4436.66 1713.33 / 1713.33 Lab / Micro Data Result Diagrams: 09/30/21 05:45 09/29/21 09:30 Labs: Laboratory Results - last 24 hr 09/28/21 20:07: Crossmatch See Detail 09/29/21 15:20: Hgb 6.8 L, Hct 20.2 L 09/30/21 05:45: WBC 7.6, RBC 2.91 L, Hgb 8.6 L, Hct 25.4 L, MCV 87.3, MCH 29.6, MCHC 33.9, RDW Std Deviation 50.2 H, RDW Coeff of Gunner 15.8 H, Plt Count 159, MPV 9.8, Immature Gran % (Auto) 0.300, Neut % (Auto) 64.7, Lymph % (Auto) 26.8, [place] % (Auto) 5.3, Eos % (Auto) 2.4, Baso % (Auto) 0.5, Absolute Neuts (auto) 4.9, Absolute Lymphs (auto) 2.02, Nucleated RBC % 0 Micro: Microbiology 09/29/21 00:37 Nasal Secretion SARS-CoV-2 Antigen (Rapid) - Final Physical Exam Const alert and oriented x3 GI soft to palpation, non-tender and non-distended Extremity no calf tenderness Assessment & Plan Assessment/Plan (1) Abnormal uterine bleeding (AUB): PLAN: HD#2 Heme - patient is HDS. Appropriate rise in Hb after 2 additional units PBRC's transfused. Will discharge home on iron for acute blood loss anemia. AUB - Discussed R/B/A of management options. Patient will go home on ocps - discussed use & risks. 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 Discharge home & patient to message office tomorrow with an update (or call PRN)
--- NOTE | 2021-09-30 13:35 | PCM.DC ---
Discharge Instructions Diet Discharge Diet: No restrictions Activity Discharge Activity: Return to Normal Activity (Gradually return to normal activity. May need to be off work for up to 1 week. ) May resume sexual activity in: 1-2 weeks (After seen by physician for follow up visit. ) Weight Bearing Status: Weight bearing as tolerated Dressing / Incision Call your doctor if you observe: Fever of 101 or Higher, Change in Color, Inability to urinate, Using more than 1 pad per hour, Shortness of breath, Dizziness, Fainting spells, Chest pain, Increased palpitations (irregular heartbeat), Calf discomfort and Uncontrolled pain Follow Up Care Please Follow Up With: Mike Vazquez MD Test Results: Test results from this visit will be discussed in further detail at your follow-up appointment, if applicable. Discharge Plan Admission Admit Date/Time: 09/29/21 01:17 Primary Reason for Your Visit: Abnormal uterine bleeding Attending Provider: Mike Vazquez Primary Care Provider: Mari Jones Discharge Orders/Prescriptions Prescriptions: New norethindrone ac-eth estradiol 1.5-30 mg-mcg tablet 1 tab PO DAILY Qty: 21 RF: 2 Slow Fe 142 mg (45 mg iron) tablet extended release 142 mg PO DAILY Qty: 30 RF: 2 Continued melatonin 5 MG capsule 10 mg PO QHS RF: 0 Discontinued ferrous sulfate 325 MG tablet 650 mg PO QODAY RF: 0 Referrals / Follow Up: Mari Jones MD [Primary Care Provider] - Disposition Disposition (needs filled in before D/C Order can be placed): Home, Self Care
== END 2021-09-30 14:21 | disposition home or self-care (01) ==
LOC: ED 09-29 00:35 → MS3 09-29 01:50
PROVIDERS: Admitting Provider Obstetrics & Gynecology; Emergency Provider Emergency Medicine; PCP Internal Medicine; Visit Provider Obstetrics & Gynecology
DX: N93.8 Other specified abnormal uterine and vaginal bleeding (principal); D62 Acute posthemorrhagic anemia; G47.30 Sleep apnea, unspecified; K58.9 Irritable bowel syndrome, unspecified; Z78.0 Asymptomatic menopausal state; Z87.891 Personal history of nicotine dependence; Z79.899 Other long term (current) drug therapy
CPT/HCPCS: 36415; 76830; 80048; 80053; 84443; 84703; 85014; 85018; 85025; 85027; 85610; 86850; 86900; 86901; 86920; 87426; 96361; 96374; 96375; 96376; 99218; 99284; J7030; J7040; P9016; A4216; G0378; J1410; J2405

== ENCOUNTER 2021-11-22 05:34 | Day surgery (SDC) | payer OTHER, SELFPAY ==
--- NOTE | 2021-11-19 09:10 | EKG12_ITS ---
Test Reason : PREOP Blood Pressure : / mmHG Vent. Rate : 069 BPM Atrial Rate : 069 BPM P-R Int : 102 ms QRS Dur : 066 ms QT Int : 378 ms P-R-T Axes : 058 033 034 degrees QTc Int : 405 ms Sinus rhythm with short WI Otherwise normal ECG Confirmed by TOMASZ LEACH, KAROLINA ([id number]), book or script editor SOFIA WOLF ([id number]) on 11/19/2021 12:58:38 PM Referred By: VINCENZO Confirmed By:KAROLINA TOLBERT MD
[2021-11-19 10:06] LABS: Hematocrit 37.8 % (37-47); Hemoglobin 11.9 g/dL (12.0-15.0); Mean Corp Hgb Conc 31.5 g/dL (32-36); Mean Corpuscular Hgb 32.5 pg (27.0-32.0); Mean Corpuscular Volume 103.3 fL (81-99); Mean Platelet Vol. 9.6 fl (6.2-12.0); Platelet Count 333 K/mm3 (150-450); RBC Distribution Width CV 16.3 % (11.6-14.6); RBC Distribution Width SD 63.4 fl (35.1-43.9); Red Blood Count 3.66 M/mm3 (4.2-5.4); White Blood Count 4.4 K/mm3 (4.4-11.0)
[2021-11-19 10:16] LABS: Internal QC Validated? YES +Cl - CLEAR BKGD; Pregnancy, Urine Negative Negative
[2021-11-19 10:22] LABS: Magnesium 2.3 mg/dL (1.6-2.6)
[2021-11-22] VITALS (12 sets, daily range): BP systolic 91–134; BP diastolic 43–79; PULSE 61–84; RESP 13–16; TEMP 36.4–37.8; O2SAT 97–100; BMI 21.9
--- NOTE | 2021-11-22 | HYST_PTH ---
PATIENT: ROC SEN LOC: [facility] – [place] U#:[id number] AGE/SX: 51/F ROOM: RE11/22/[address]: Dr. Renteta Balderas DO : 1970 BED: DIS: 11/22/2021 SPEC #: [id number] RECD: 11/22/21 12:48 STATUS: VIRGIL AUTUMN #: [id number] SKIP: 11/22/21 00:[address]: Renetta Balderas DEPT: SURGICAL PATHOLOGY RECD BY: Satish Donis ENTERED: 11/22/21 12:48 SP TYPE: HYSTERECT OTHR DR: Dr. Mari Jones MD Tissues: Uterus, NOS Procedures: Surgery Specimen Level V HEADER OPERATION: ERAS, total laparoscopic hysterectomy, bilateral salpingectomy PRE-OP DIAGNOSIS: Dysfunctional uterine bleeding, uterine fibroids TISSUE SUBMITTED: Uterus, cervix, bilateral fallopian tubes MICROSCOPIC DIAGNOSIS Uterus, hysterectomy: Cervix ? squamous metaplasia and mild chronic inflammation and nabothian cysts. Endometrium ? weakly proliferative to inactive endometrium. Myometrium ? leiomyomas and adenomyosis. Right and left fallopian tubes ? benign paratubal cyst. AM:jeannette 11/23/2021 MICROSCOPIC DESCRIPTION Slides are reviewed. GROSS DESCRIPTION Received in fixative is one container labeled with the patient's name and designated uterus, cervix, bilateral fallopian tubes. The specimen consists of a hysterectomy specimen consisting of uterus with cervix and detached bilateral fallopian tubes. The uterus with cervix weighs 120 gm and measures 9.5 x 7 x 5 cm. The serosal surface is zamarripa, glistening. The ectocervical mucosa is unremarkable. The external os is circular in contour. The endocervical canal measures 3.5 cm in length and the endocervical mucosa shows a zamarripa-pink polyp in the posterior cervical wall measuring 1 x 0.2 x 0.1. The endocervical wall underneath the polyp is not indurated. The endometrial cavity is saucer-shaped and measures 5 cm in length and up to 3.5 cm in diameter. The endometrium is zamarripa, glistening without any mass lesion and measures 0.1 cm in thickness. Sections of the uterine wall reveal one submucosal nodular mass measuring 1.5 cm in greatest dimension and three intramural masses measuring 0.3 to 1.5 cm in greatest dimension. Sections of these masses reveal zamarripa whorled cut surfaces without areas of hemorrhage, necrosis or cystic degeneration. The uninvolved uterine wall measures up to 2 cm in thickness. The uterus also shows at one of the cornu, a plastic O-ring which appears intact. The fallopian tubes are not identified as right or left and measures 4 cm in length and 0.4 cm in diameter and 3.5 cm in length and 0.5 cm in diameter. The fimbrial ends are identified. Sections reveal unremarkable cut surfaces. Public Relations Specialist sections are submitted in ten cassettes as follows: 1 - anterior cervix, 2 - posterior cervix, endocervical polyp, 3 & 4 - anterior uterine wall, 5 & 6 - posterior uterine wall, 7 - submucosal nodular mass, 8 - intramural nodular masses, 9 & 10 - bilateral fallopian tubes with each cassette containing one fallopian tube. / SJ:rg 11/22/2021 TC:1 CPT: 51325
[2021-11-22] MEDS: Lactated Ringers 1,000 ML 15 ML IV (05:50)
[2021-11-22 06:25] LABS: Internal QC Validated? YES +Cl - CLEAR BKGD; Pregnancy, Urine Negative Negative
[2021-11-22] MEDS: Phenazopyridine 95 MG Tablet 190 MG PO (06:29)
[2021-11-22] MEDS: Acetaminophen 500 MG Tablet 1000 MG PO (06:29)
[2021-11-22] MEDS: Celecoxib 200 MG Capsule 400 MG PO (06:29)
[2021-11-22] MEDS: Gabapentin 600 MG Tablet PO (06:30)
[2021-11-22] MEDS: dexAMETHasone 10 MG/ML Vial 8 MG IV (06:30)
[2021-11-22] MEDS: Scopolamine 1mg/72hr Patch 1 PATCH TD (06:30)
[2021-11-22] MEDS: Lactated Ringers 1,000 ML 40 ML IV (06:30)
[2021-11-22] MEDS: Enoxaparin 40 MG/0.4 ML Syringe SC (06:31)
[2021-11-22] MEDS: Lactated Ringers 1,000 ML 70 ML IV (07:00)
[2021-11-22 07:05] LABS: Bedside Glucose 82 mg/dL (70-110)
[2021-11-22 07:30] LABS: Hematocrit 34.4 % (37-47); Hemoglobin 11.1 g/dL (12.0-15.0)
[2021-11-22] MEDS: Cefazolin 2 GM in 0.9% Normal Saline 100 ML IV (07:33)
[2021-11-22] MEDS: Bupivacaine Mpf 0.5% 30 ML VIAL (09:47)
[2021-11-22] MEDS: Ondansetron 4 MG/2 ML Vial IV (09:50)
--- NOTE | 2021-11-22 09:56 | DCINST_ITS ---
Discharge Instructions Diet Discharge Diet: No restrictions Activity Discharge Activity: May Not Drive (Until you feel strong enough to slam on a brake or turn a steering wheel sharply) May resume sexual activity in: 6-8 weeks (After 6 week appointment) Ice area for (Minutes): 15 Weight Bearing Status: Weight bearing as tolerated Lifting Restrictions: Nothing heavier than 5-10 lbs until 6 week appointment Additional Activity Instructions:: No intercourse, no tampons, no hot tubs/pools/tub baths until 6 week appointment Dressing / Incision Call your doctor if your incision/area has: Sudden Increased Bleeding, Increased Pain/ Swelling, Increased Redness, Foul Smelling Discharge and Swelling at the i ncision site Call your doctor if you observe: Fever of 101 or Higher, Coldness, Increased Pain, Numbness or Tingling, Change in Color, Inability to urinate, Inability to have a bowel movement, Using more than 1 pad per hour, Shortness of breath, Dizziness, Fainting spells, Swelling in the ankles, Chest pain, Increased palpitations (irregular heartbeat), Calf discomfort and Uncontrolled pain Suture Line Care: Avoid Pulling/Pushing and Avoid Pinching/Bending Remove Dressing in: leave until fall off (There are sutures that will dissolve under the skin and glue over top. If the glue is peeling up okay to peel off or cut if bothersome) Cleanse incision/area with: Soap & Water Follow Up Care Please Follow Up With: Sherrie When: 1 week and 6 weeks Test Results: Test results from this visit will be discussed in further detail at your follow-up appointment, if applicable. Discharge Plan Admission Primary Reason for Your Visit: Hysterectomy Attending Provider: Renetta Balderas Primary Care Provider: Mari Jones Instructions Patient Instructions: Laparoscopic Hysterectomy Your ..., Hysterectomy Home Care Discharge Orders/Prescriptions Prescriptions: New oxycodone-acetaminophen [Percocet] 5-325 mg tablet 1 tab PO Q6H PRN (Reason: pain) 7 Days Qty: 10 RF: 0 docusate sodium 100 mg tablet 100 mg PO BID PRN (Reason: constipation) Qty: 30 RF: 0 ibuprofen 600 mg tablet 600 mg PO Q6H PRN (Reason: pain) Qty: 30 RF: 0 Continued melatonin 5 MG capsule 10 mg PO QHS RF: 0 Slow Fe 142 mg (45 mg iron) tablet extended release 142 mg PO DAILY Qty: 30 RF: 2 multivitamin Tablet 1 tab PO DAILY RF: 0 ibuprofen [Advil] 200 mg Tablet 400 mg PO Q6H PRN (Reason: Pain) RF: 0 cholecalciferol (vitamin D3) [Vitamin D3] 25 mcg (1,000 unit) Tablet 25 mcg PO DAILY RF: 0 Discontinued norethindrone ac-eth estradiol 1.5-30 mg-mcg tablet 1 tab PO DAILY Qty: 21 RF: 2 acetaminophen [Tylenol] 325 mg Tablet 650 mg PO Q6H PRN (Reason: Pain) RF: 0 Referrals / Follow Up: Mari Jones MD [Primary Care Provider] - Disposition Disposition (needs filled in before D/C Order can be placed): Home, Self Care
[2021-11-22] MEDS: HYDROcodone Bitartrate/Apap 5/325 Tablet PO (11:55)
--- NOTE | 2021-11-22 14:52 | PCM.OPRPT ---
Problems Associated Problem List Diagnoses (1) Heavy menstrual bleeding: (2) Acute blood loss anemia: (3) Abnormal uterine bleeding (AUB): (4) S/P endometrial ablation: Report of Operation Date of Procedure: 11/22/21 Pre-Operative Diagnosis: Menorrhagia, uterine fibroid, s/p uterine ablation, anemia Post-Operative Diagnosis: As above Surgery/Procedure Performed:: TLH, BS, cystoscopy Description of Surgical Findings:: Normal-appearing uterus. Normal-appearing bilateral ovaries. Prior tubal ligation noted but bilateral fallopian tubes were otherwise normal-appearing. Normal-appearing pelvis. Surgeon: Sherrie senior online marketing manager: Carlyle Type of Anesthesia: General Special Medications: None Specimen's removed: Uterus, bilateral fallopian tubes, cervix Drains: None Estimated Blood Loss (mL): 50 cc Fluids Replaced: See anesthesia record Description of Procedure: Under general anesthesia and in dorsal lithotomy position using yellow fin stirrups, the patient was prepped and draped in the usual sterile fashion. A weighted speculum was placed in the vagina and a single-tooth tenaculum was placed on the anterior lip of the cervix. A Lindsay catheter was placed in the bladder. The cervical os was dilated to accommodate the [place] uterine manipulator. Once the [place] uterine manipulator was placed in usual fashion, gloves were changed and attention was turned to the abdominal portion of the procedure. Local was infiltrated at all port sites. Beginning in the subumbilical area the skin was first infiltrated with about 2 cc of local solution, and a 5 mm incision was made through the skin with the scalpel. Under direct visualization the laparoscope was placed. Once confirmed intraperitoneal, CO2 insufflation was initiated to a maximum pressure of 20 mmHg. Examination of the peritoneal cavity revealed no signs of injury from entry and normal anatomic structures. The patient was then placed in steep Trendelenburg position and position and 2 additional 5 mm trochars were placed, 1 on the left and 1 on the right in standard fashion. All trochars were placed under direct visualization with no damage to underlying structures. The uterus was upheld below revealing a normal uterus and bilateral ovaries. Fallopian tubes were normal-appearing with a prior tubal ligation noted. Beginning on the left side the fallopian tube was lifted towards the anterior abdominal wall exposing the mesosalpinx. Working from distal to proximal the mesosalpinx was sequentially clamped, ligated, and cut using the LigaSure device hugging adjacent to the tube in the direction of the cornua. Once at the cornua, the tube was ligated and cut and removed. Following this, the utero-ovarian ligament was clamped, sealed, and cut. The ovarian pedicle was inspected and noted to be hemostatic. Attention was then turned to the other side. The same process was repeated on the right sequentially clamping, ligating, and cutting the mesosalpinx as well as the utero ovarian ligament. The round ligament was then cut and ligated. Following this the anterior leaf of the broad ligament was then dissected down towards the peritoneal reflection at the base of the bladder adjacent to the cervix. The same processes was then repeated on the other side such that both sides met, and the anterior leaflet had been appropriately skeletonized. Once the bladder was appropriately dissected free from the lower uterine anterior segment, and the tissues were skeletonized, the uterine arteries were bilaterally clamped and ligated. Pedicles were checked and hemostatic. At the level of the cup of the uterine manipulator, the vaginal vault was incised circumferentially with a monopolar J-hook. The uterus and cervix was delivered through the vagina and sent to pathology for review. Instruments were removed and the abdominal was exsufflated. Attention was then turned to the vaginal portion of the procedure again. Inspection of all pedicles was made to ensure hemostasis. The posterior vaginal cuff was sutured in a running locked fashion for hemostasis using Vicryl. Several [id number] sutures were placed along the vaginal cuff from below using Vicryl to reapproximate the vaginal cuff. Once the vaginal cuff was closed vaginally, the Lindsay was removed. A cystoscopy was performed noting a normal-appearing bladder and good bilateral ureteral jets. The cystoscope was then removed and the bladder was drained. A sponge stick was placed in the vagina and gloves were changed. Attention was turned to the abdominal portion of the procedure again. The abdomen was insufflated and the pedicles and the vaginal cuff were inspected from above. The pedicles and cuff were noted to be hemostatic. No bleeding was noted. All ports were removed and the abdomen was exsufflated. The port incisions were closed with Monocryl and glue. The sponge stick was removed from the vagina. Vaginal sweep was performed. Instrument, sponge, needle counts were correct. The patient was taken to recovery in stable condition. Cistern Room Operator Dr Jada Tadeo assisted with the entire surgery including draping the patient, performing the hysterectomy, and skin closure. Grafts/Implants Used: None Complications None Admit VTE Documentation VTE Present on Admission: No VTE Mechan Device Prophylaxis: SCD's
[2021-11-22] MEDS: Ibuprofen 200 MG Tablet 600 MG PO (16:09)
== END 2021-11-22 23:59 | disposition home or self-care (01) ==
LOC: SDC 05:35 → AC 05:35
PROVIDERS: Anesthesiology; PCP Internal Medicine; Referring Provider Obstetrics & Gynecology; Visit Provider Obstetrics & Gynecology
PROC: 0UT94ZZ Resection of Uterus, Percutaneous Endoscopic Approach (ICD-10-PCS; CPT 58571; principal; 2021-11-22 07:10)
DX: N92.0 Excessive and frequent menstruation with regular cycle (principal); N93.8 Other specified abnormal uterine and vaginal bleeding; N87.0 Mild cervical dysplasia; N88.8 Other specified noninflammatory disorders of cervix uteri; N80.0 Endometriosis of uterus; N83.8 Other noninflammatory disorders of ovary, fallopian tube and broad ligament; D25.0 Submucous leiomyoma of uterus; D62 Acute posthemorrhagic anemia; Z87.891 Personal history of nicotine dependence
CPT/HCPCS: 58571; 00840; 36415; 81025; 82962; 83735; 85014; 85018; 85027; 85730; 86850; 86900; 86901; 88307; 93005; J7120; J2405; J3475